=== PATIENT | male | born 1990 | race African-American/Black ===

== ENCOUNTER 2021-03-17 11:16 | Emergency (ER) | payer MEDICAID, OTHER ==
[~2021-03-17] VITALS: Ht 182.9 cm; Wt 90.7 kg
[2021-03-17 11:21] VITALS: BP 108/63
[2021-03-17] MEDS ORDERED: ACETAMINOPHEN 325 MG TAB PO ONE (18:15)
== END 2021-03-17 19:32 | disposition home or self-care (01) ==
LOC: EDBD 11:16 → ER 11:16
DX: S62.522A Displaced fracture of distal phalanx of left thumb, initial encounter for closed fracture (principal); W34.00XA Accidental discharge from unspecified firearms or gun, initial encounter; Y93.89 Activity, other specified; Y92.89 Other specified places as the place of occurrence of the external cause; Y99.8 Other external cause status
CPT/HCPCS: 73140

== ENCOUNTER 2021-10-26 10:07 | Emergency (ER) | payer MEDICAID, OTHER ==
[~2021-10-26] VITALS: Ht 182.9 cm; Wt 84.0 kg
[2021-10-26 14:44] VITALS: BP 114/56
== END 2021-10-26 14:47 | disposition home or self-care (01) ==
LOC: ER 10:07
DX: S52.92XE Unspecified fracture of left forearm, subsequent encounter for open fracture type I or II with routine healing (principal); Y08.89XD Assault by other specified means, subsequent encounter
CPT/HCPCS: 29105